=== PATIENT | male | born 1980 ===

== ENCOUNTER 2020-11-16 14:55 | Observation (INO) ==
[2020-11-16 16:31] LABS: ABS Eosinophils 0.1 10^3/ul (0-0.6); ABS Lymphocytes 1.3 10^3/ul (1.0-4.8); ABS Monocytes 0.5 10^3/ul (0-0.8); ABS Neutrophils 3.3 10^3/ul (1.5-7.7); Hematocrit 40 % (42-52); Hemoglobin 13.5 g/dL (14.0-18.0); Lymphocyte % 25.9 %; Mean Corpuscular HGB Conc 34 g/dL (31-36); Mean Corpuscular Hemoglobin 34 pg (27-31); Mean Corpuscular Volume 100 fL (80-94); Mean Platelet Volume 7.8 fL (7.4-10.4); Nucleated Red Blood Cells % 0.1; Platelet Count 332 10^3/uL (150-450); Red Cell Distribution Width 14 % (10-15); White Blood Count 5.2 10^3/uL (3.5-10.8)
[2020-11-16 17:06] LABS: Albumin 4.7 g/dL (3.2-5.2); Albumin/Globulin Ratio 1.7 (1-3); Calcium 9.2 mg/dL (8.6-10.3); EGFR African American 94.2 (>60); EGFR Non-African American 77.8 (>60); Globulin 2.8 g/dL (2-4); Magnesium 2.2 mg/dL (1.9-2.7); Potassium 3.7 mmol/L (3.5-5.0); Total Bilirubin 1.2 mg/dL (0.2-1.0); Total Protein 7.5 g/dL (6.4-8.9)
[2020-11-16 17:13] LABS: TSH Ultra Thyroid Stim Horm 0.46 mcIU/mL (0.34-5.60)
[2020-11-16] MEDS ORDERED: Labetalol IV 5 MG/ML 20 ml VIAL IV PUSH ONE (18:43)
[2020-11-17] MEDS ORDERED: Albuterol HFA INHALER 8 gm MDI INH PRN (01:37)
[2020-11-17 01:49] LABS: Urine Appearance Cloudy; Urine Bilirubin Negative (Negative); Urine Blood Negative (Negative); Urine Color Yellow; Urine Glucose Negative (Negative); Urine Ketones Trace (Negative); Urine Nitrite Negative (Negative); Urine Protein 1+(30 mg/dL) (Negative); Urine Specific Gravity 1.025 (1.002-1.030); Urine Urobilinogen Negative (Negative)
[2020-11-17 02:01] LABS: Urine Bacteria Absent (Absent); Urine Red Blood Cell 1+(3-5/hpf) (Absent); Urine White Blood Cell Trace(0-5/hpf) (Absent)
[2020-11-17 02:09] LABS: Urine Benzodiazepine Screen None Detected (None Detect); Urine Cannabinoids Screen Presumptive Positive (None Detect); Urine Opiates Screen None Detected (None Detect)
[2020-11-17] MEDS ORDERED: NS 0.9% 1000 ml BAG 1,000 ML IV SCH (09:45)
[2020-11-18 07:00] LABS: ABS Basophils 0.1 10^3/ul (0-0.2); ABS Eosinophils 0.1 10^3/ul (0-0.6); ABS Lymphocytes 2.5 10^3/ul (1.0-4.8); ABS Monocytes 0.7 10^3/ul (0-0.8); ABS Neutrophils 2.2 10^3/ul (1.5-7.7); Eosinophil % 2.1 %; Hematocrit 43 % (42-52); Hemoglobin 14.7 g/dL (14.0-18.0); Lymphocyte % 44.2 %; Mean Corpuscular HGB Conc 35 g/dL (31-36); Mean Corpuscular Hemoglobin 34 pg (27-31); Mean Corpuscular Volume 98 fL (80-94); Mean Platelet Volume 8.2 fL (7.4-10.4); Nucleated Red Blood Cells % 0.2; Platelet Count 326 10^3/uL (150-450); Red Blood Count 4.35 10^6 /uL (4.18-5.48); Red Cell Distribution Width 13 % (10-15); White Blood Count 5.6 10^3/uL (3.5-10.8)
[2020-11-18 07:20] LABS: Calcium 9.6 mg/dL (8.6-10.3); EGFR African American 104.4 (>60); EGFR Non-African American 86.3 (>60); Magnesium 2.2 mg/dL (1.9-2.7); Potassium 3.8 mmol/L (3.5-5.0)
[2020-11-18] MEDS ORDERED: Potassium Chlor 20 meq TAB.ER PO ONE (07:39)
[2020-11-18] MEDS ORDERED: Pneumococcal Vac 23-Polyvalent IM ONE (09:00)
[2020-11-18 11:50] VITALS: BP 152/102
== END 2020-11-18 14:35 | disposition home or self-care (01) ==
LOC: ED 14:55 → MEDTELE 14:55
PROVIDERS: ADMIT Internal Medicine; ATTEND Student in an Organized Health Care Education/Training Program